=== PATIENT | female | born 1930 | race Two or more races ===

== ENCOUNTER 2017-09-10 13:57 | Outpatient (CLI) | payer OTHER ==
[~2017-09-10 13:57] MED LIST: AMLODIPINE BESYL5 MG; ARICEPT5 MG; BENZONATATE100 MG; CEFPROZIL500 MG; CLOPIDOGREL BIS75 MG; HUMALOG100 U/M1; INTEGRA F CAPS1 EACH; LEVAQUIN500 MG PO; LEVOTHROID112 MCG; LOSARTAN-HCTZ1 EAC2; RANITIDINE HCL150 M1; SIMVASTATIN20 MG
== END 2017-09-10 14:01 | disposition home or self-care (01) ==
LOC: SONOGRAMA 13:57
DX: N39.0 Urinary tract infection, site not specified (principal); N39.41 Urge incontinence

== ENCOUNTER 2017-09-24 11:38 | Outpatient (CLI) | payer OTHER | END 2017-09-24 11:40 | disposition home or self-care (01) | LOC: NUCLEAR 11:38 | DX: I35.0 Nonrheumatic aortic (valve) stenosis (principal); R55 Syncope and collapse ==

== ENCOUNTER → 2017-10-20 | Emergency (ER) | payer OTHER ==
[~2017-10-20] VITALS: Ht 152.4 cm; Wt 61.2 kg
== END | disposition home or self-care (01) ==
LOC: ER 14:29
DX: E11.649 Type 2 diabetes mellitus with hypoglycemia without coma (principal); E86.0 Dehydration; R19.7 Diarrhea, unspecified; R11.2 Nausea with vomiting, unspecified

== ENCOUNTER 2019-02-26 03:54 | Emergency (ER) | payer OTHER ==
[~2019-02-26] VITALS: Ht 154.9 cm; Wt 59.9 kg
== END 2019-02-26 07:46 | disposition home or self-care (01) ==
LOC: ER 03:54
DX: S09.8XXA Other specified injuries of head, initial encounter (principal); R55 Syncope and collapse; W06.XXXA Fall from bed, initial encounter; Y93.84 Activity, sleeping; Y92.013 Bedroom of single-family (private) house as the place of occurrence of the external cause; Y99.8 Other external cause status

== ENCOUNTER 2019-06-14 16:35 | Emergency (ER) | payer OTHER ==
[~2019-06-14] VITALS: Ht 152.4 cm; Wt 59.0 kg
== END 2019-06-14 18:50 | disposition home or self-care (01) ==
LOC: ER 16:35
DX: R06.02 Shortness of breath (principal); F06.4 Anxiety disorder due to known physiological condition